=== PATIENT | male | born 1975 | race Caucasian/White ===

== ENCOUNTER 2018-01-04 21:47 | Emergency (ER) | payer BC ==
[~2018-01-04] VITALS: Ht 194.3 cm; Wt 124.7 kg
[2018-01-04 22:06] VITALS: BP 128/69
[2018-01-04] MEDS ORDERED: LACTULOSE20 GM/301 ORAL (23:15)
--- NOTE | 2018-01-04 23:16 | Emergency Room Report ---
History of Present Illness General Chief Complaint: Constipation Source: Patient Present Illness HPI Is a 42-year-old male with no significant past medical history. He presents with chief complaint of constipation. Last normal bowel movement was 3 days ago. Try to relax and enema without much success. Has very small pellets bowel movement today. Denies any nausea vomiting. Denies any abdominal pain. The symptoms 7 years ago. As the urge to defecate but felt like it stuck. Allergies: Coded Allergies: No Known Allergies (Unverified , 01/04/18) Patient History Past Medical History: see triage record, old chart reviewed Past Surgical History: none Pertinent Family History: none Social History: Denies: smoking Immunizations: other Reviewed Nursing Documentation: PMH: Agreed; PSxH: Agreed Nursing Documentation-PMH Past Medical History: No Stated History Review of Systems Eye: Denies: eye pain, blurred vision ENT: Denies: ear pain, nose congestion, throat swelling Respiratory: Denies: cough, shortness of breath Cardiovascular: Denies: chest pain, palpitations Gastrointestinal: Reports: constipation; Denies: abdominal pain, diarrhea, nausea, vomiting Musculoskeletal: Denies: back pain, joint pain Skin: Denies: rash Neurological: Denies: headache, numbness Endocrine: Denies: increased thirst, increased urine Hematologic/Lymphatic: Denies: easy bruising All Other Systems: negative except mentioned in HPI Physical Exam Vital Signs Date Time Temp Pulse Resp B/P (MAP) Pulse Ox O2 Delivery O2 Flow Rate FiO2 01/04/18 21:53 98.8 94 19 128/69 95 Room Air vitals normal Sp02 EP Interpretation: reviewed, normal General Appearance: well appearing, no apparent distress, alert Head: normocephalic, atraumatic Eyes: bilateral eye PERRL, bilateral eye EOMI ENT: hearing grossly normal, normal pharynx Neck: full range of motion, supple, no meningismus Respiratory: chest non-tender, lungs clear, normal breath sounds Cardiovascular #1: regular rate, rhythm, no murmur Gastrointestinal: normal bowel sounds, non tender, no mass, no organomegaly, no bruit, non-distended Rectal: other - A large impacted stool Musculoskeletal: back normal, gait/station normal, normal range of motion Neurologic: alert, oriented x3 Psychiatric: mood/affect normal Skin: warm/dry Procedures Additional Procedure Procedure Narrative Procedure: Disimpaction Indication: Impaction Description: With large amount of lubrication, I disimpacted a large amount of stool. An enema was then given to patient. He had a large bowel movement and felt better. Medical Decision Making Diagnostic Impression: Primary Impression: Constipation Qualified Codes: K59.00 - Constipation, unspecified ER Course Patient with constipation. No obstruction. [place] better. Abdominal exam benign. We'll discharge home. Last Vital Signs Date Time Temp Pulse Resp B/P (MAP) Pulse Ox O2 Delivery O2 Flow Rate FiO2 01/04/18 22:06 98.8 94 19 128/69 95 Room Air Status: improved Disposition: HOME, SELF-CARE Condition: Stable Scripts Lactulose (LACTULOSE*) 20 Gm/30 Ml Solution 30 ML ORAL DAILY, #120 ML 0 Refills Prov: Abdullahi Durand MD 01/04/18 Patient Instructions: Constipation, Adult Additional Instructions: Increase fiber. Increase fluids. Follow-up with your doctor in 7 days. Return if worse. Abdullahi Durand MD Jan 04, 2018 23:16
[2018-01-04 23:27] VITALS: BP 111/77
== END 2018-01-04 23:25 | disposition home or self-care (01) ==
LOC: EMR 22:30
DX: K59.00 Constipation, unspecified (principal)
CPT/HCPCS: 99283